=== PATIENT | male | born 1960 | race Caucasian/White ===

== ENCOUNTER → 2017-05-11 20:46 | Outpatient (CLI) | payer SELFPAY ==
[2013-08-22 07:30] VITALS: BMI 29.6
[~2017-05-11 20:46] MED LIST: ASPIRIN 81 MG E81 MG PO; COENZYME Q1030 MG; CRESTOR20 MG PO; FISH OIL 1,0001 CA1 PO; LOTREL 5/20 MG1 CAP PO; PLAVIX75 MG PO
[2017-05-13 07:26] LABS: HEPATITIS C ANTIBODY <0.1 (0.0-0.9)
== END | disposition home or self-care (01) ==
LOC: D.LABREF 20:46
PROVIDERS: Family Medicine
DX: Z11.59 Encounter for screening for other viral diseases (principal)

== ENCOUNTER → 2019-02-14 10:06 | Outpatient (CLI) | payer OTHER ==
[2013-08-22 07:30] VITALS: BMI 29.6
--- NOTE | 2019-02-16 10:39 | ST ---
PATIENT:BHARAT COFFEY MEDICAL RECORD: [id number] SEX: M LOCATION:[facility] ORDER #: ADMISSION DATE: 02/14/19 AGE OF PATIENT: 58 REFERRING PHYSICIAN: INTERPRETING PHYSICIAN: ROSSANA SULLIVAN MD DATE OF SERVICE: 02/14/2019 Nuclear Stress Test INDICATIONS: Angina, coronary artery disease, previous multivessel PTCA and stent. He was exercised on standard Rodo protocol for 7-1/2 minutes achieving greater than 100% max target heart rate response with 28 mCi of sestamibi injected at peak stress, 9 mCi used previously for rest images. FINDINGS: Gated SPECT reveals preserved ejection fraction at 61% with decreased thickening and brightening throughout the inferior segments. SPECT IMAGING: Cardiolite was used as myocardial fusion agent. There is a fixed perfusion defect inferiorly from previous inferior myocardial infarction. No evidence of reversible ischemia. The remaining segments are with homogeneous uptake at rest and stress. OVERALL IMPRESSION: This is a stable nuclear stress test showing only a previous inferior myocardial infarction, no ongoing ischemic burden with ejection fraction preserved greater than 60%. Continue medical management of the coronary artery disease and cardiac risk factors. TRANSINT:[id number] Voice Confirmation ID: [id number] DOCUMENT ID: [id number] ROSSANA SULLIVAN MD at 1039 CC: [id number] DICTATION DATE: 02/14/19 1602 DIE MACHINE OPERATOR: 02/15/19 0557 [facility] CLI 02/14/19 [id number] [place] [address]
== END | disposition home or self-care (01) ==
LOC: D.HCCARDIO 10:06
PROVIDERS: ATTEND Internal Medicine Interventional Cardiology
DX: R07.9 Chest pain, unspecified (principal)